=== PATIENT | female | born 1950 | race Caucasian/White ===

== ENCOUNTER 2025-10-01 11:43 | Emergency (ER) | payer MEDICARE, OTHER, SELFPAY ==
[2025-10-01 11:59] VITALS: BP 127/68
--- NOTE | 2025-10-01 12:12 | ED.MUSCINJ ---
HPI-Injury
General
Chief Complaint: Musculo-Skeletal Complaint
Source: patient
Exam Limitations: none
Time Seen by Provider: 10/01/25 12:04
History of Present Illness-Injury
Initial Injury comments:
75-year-old [id number] female presents complaining of right shoulder pain starting yesterday. She received a COVID and flu vaccines into the right deltoid yesterday. She states yesterday the pain was severe the pain is slightly improved
today but she is unable to lift her arm. The pain radiates from the lateral shoulder to the posterior shoulder. No injury otherwise. She denies a fever or skin changes. No other complaints
Past History
Past History
ED Past Medical History: HTN
ED Past Surgical History: Appendectomy, Gynecological, Tonsilectomy and Other (Laparoscopy)
Social History
Tobacco: Non-smoker
Alcohol: None
Living: with family
Family History
Family History: CAD
Phy Exam
Physical Exam
Physical Exam:
General: Well-appearing female no acute respiratory distress
HEENT: Normal cephalic atraumatic
Musculoskeletal exam: The right shoulder is tender laterally no significant deformity or swelling. She has good passive range of motion to the shoulder however active range of motion is limited
Skin is warm without erythema or fluctuance
Vascular: 2+ radial pulse right wrist
Injury Course
Orders/Labs/Results
Orders:
Orders
10/01/25 12:12
Sling Right-Treatment ONCE
Ibuprofen [Motrin] 600 mg PO NOW STA
MDM/Problems Addressed
Differential Diagnosis Includes:
Right shoulder pain after COVID and flu vaccines yesterday. I suspect inflammatory response to the vaccines. No sign of septic arthritis. Will prescribe Motrin for her to take and use a sling. No indication for admission. Stable for discharge
*Pulse Oximetry
SaO2: 98
Oxygen Mode of Delivery: Room air
Patient hypoxic: no
*Critical Care Note
Total Time (30-74mins, 75-104mins- exclusive of procedures): Not Applicable
ED Attending Note
-
Portions of this chart may have been created with voice recognition software.� Occasional wrong word or��sound alike� substitutions may have occurred due to the inherent limitations of voice recognition software.
Discharge Plan
Departure
Patient Disposition: Home (Routine Discharge)
Date of Disposition: 10/01/25
Time of Disposition: 12:14
Patient with high blood pressure during this ER visit?: No
Discharge Problem:
Adverse reaction to vaccine
Instructions: Muscle and Bone Pain (DC)
Prescriptions:
New
ibuprofen 600 mg tablet
600 mg PO TID PRN (Reason: Pain) Qty: 10 0RF
No Action
Fluoxetine HCl
5 mg PO DAILY
omeprazole 20 MG capsule,delayed release(DR/EC)
20 mg PO PRN PRN (Reason: gi)
prednisone 20 MG tablet
40 mg PO DAILY Qty: 8 0RF
Activity Restrictions/Additional Instructions:
Use a sling for comfort. Continue with ibuprofen for pain. Return fever skin changes increasing pain or other concerning findings
Interventions
Interventions:
*Neglect/Abuse Screening Last Done: 10/01/25 11:59
*Risk Screen - Suicide (C-SSRS) Last Done: 10/01/25 11:59
Discharge Date and Time
Print Language: IRISH
[2025-10-01] MEDS: MOTRIN 600 MG PO (12:21)
== END 2025-10-01 12:30 | disposition home or self-care (01) ==
LOC: EMR 11:43
PROVIDERS: EMERGENCY PHYSICIAN Emergency Medicine
DX: M25.511 Pain in right shoulder (principal); T50.Z95A Adverse effect of other vaccines and biological substances, initial encounter; Y84.8 Other medical procedures as the cause of abnormal reaction of the patient, or of later complication, without mention of misadventure at the time of the procedure; I10 Essential (primary) hypertension; Z90.49 Acquired absence of other specified parts of digestive tract
CPT/HCPCS: 99282